=== PATIENT | male | born 1980 | race Caucasian/White ===

== ENCOUNTER 2021-03-05 12:24 | Emergency (ER) | payer OTHER ==
[~2021-03-05 12:24] MED LIST: NORCO 7.5-3251 EACH PO
[2021-03-05] MEDS ORDERED: IBUPROFEN600 MG PO (14:21)
== END 2021-03-05 14:35 | disposition home or self-care (01) ==
LOC: ER1 12:24
DX: S60.222A Contusion of left hand, initial encounter (principal); S60.221A Contusion of right hand, initial encounter; W22.8XXA Striking against or struck by other objects, initial encounter; F17.210 Nicotine dependence, cigarettes, uncomplicated
CPT/HCPCS: 73130; 99283

== ENCOUNTER 2021-05-25 12:42 | Emergency (ER) | payer OTHER ==
[~2021-05-25 12:42] MED LIST changes: +IBUPROFEN600 MG PO
[2021-05-25] MEDS ORDERED: CORTISPORIN OTI10 M1 EARRT (13:44)
[2021-05-25] MEDS ORDERED: ZITHROMAX TRI-500 MG PO (13:44)
== END 2021-05-25 14:33 | disposition home or self-care (01) ==
LOC: ER1 12:42
DX: H66.91 Otitis media, unspecified, right ear (principal); F17.210 Nicotine dependence, cigarettes, uncomplicated
CPT/HCPCS: 99282